=== PATIENT | female | born 1975 | race Two or more races ===

== ENCOUNTER 2024-04-15 09:58 | Inpatient (IN) | payer MEDICAID, OTHER ==
[~2024-04-15] VITALS: Ht 154.9 cm; Wt 73.6 kg
--- NOTE | 2024-04-15 10:45 | ECG ---
[facility] Test Date: 2024-04-15 Test Time: 10:37:21 Pat Name: MEJIA Department: ER Room: [facility] Gender: F Road Advisor: SHELLIE : 1975 Requested By: ENOCH AU Order Number: [id number] Reading MD: Tomas Rhodes Measurements Intervals [place] Rate: 79 P: 47 OK: 132 QRS: 49 QRSD: 95 T: 16 QT: 380 QTc: 436 Interpretive Statements Sinus rhythm Electronically Signed On 04-19-2024 21:49:45 PST by Tomas Rhodes Please click the below link to view image of tracing.
--- NOTE | 2024-04-15 10:49 | ED.PDOC ---
SOB-HPI HPI Comments RESTREPO: HPI: Poor Historian. 49-year-old female presents to emergency department for symptoms of nonproductive cough since Thursday with the associated nausea and occasional headache. Patient states that her entire family is sick with similar viral symptoms. Denies any fever. Patient is sometimes has occasional dizziness with the headaches in the last few days. Past Medical History: Denies Past Surgical History: REVIEW OF SYSTEMS: CONSTITUTIONAL: Denies acute: fever, diaphoresis, chills, HEAD: Denies acute: headache, photophobia Eyes: Denies acute: Double vision, vision loss, eye pain, eye discharge. EARS: Denies acute: tinnitus, hearing loss, ear discharge, ear pain, THROAT: Denies acute: sore throat, swelling, difficulty swallowing , pain with swallowing, change in voice. NECK: Denies acute: neck pain, neck swelling, stiff neck. HEART: Denies acute : chest pain, palpitations, LUNGS: Denies acute: SOB, wheezing, , hemoptysis ABDOMEN: Denies acute: abdominal pain, Vomiting, diarrhea, melena , hematemesis, hematochezia SKIN: Denies acute: rash, redness, lesions, itchiness. EXTREMITIES: Denies acute: calf pain, numbness, tingling, weakness, denies pain in extremity. Denies acute: Low back pain. Neuro: Denies acute: focal neurological deficit, motor or sensory focal neurological deficit, tremors, seizure like activity, confusion, change in mental status, loss of bowel or bladder function, cauda equina like symptoms. : Denies acute: dysuria, hematuria, flank pain, increase in urinary frequency. PSYCH: Denies acute: hallucination, suicidal ideation, homicidal ideation. FEMALE: Denies acute: abnormal vaginal bleeding, foul odor, unusual discharge. PHYSICAL EXAM: General: no acute distress, awake and alert. Head: normocephalic, atraumatic. Neck: supple, trachea is midline, no swelling. Throat: Normal phonation. Eyes:, no erythema, no purulent discharge, no proptosis, no icterus. Heart: regular rate, regular rhythm, no significant murmur appreciated. Lungs: no apparent respiratory distress, Able to speak in full sentences. No wheezing, no rhonchi, no crackles. No stridors Clear to auscultation bilaterally. Abdomen: non tender to palpation, non distended, soft, no guarding, no rebound, + bowel sounds. Neuro: Awake, Alert, oriented to name, self, situation, follows commands GCS=15. Speech is normal. Skin: no petechia, no purpura, no cyanosis, non-pale, not jaundice. Lower extremities: --no - Pitting edema no deformity, no focal swelling, no calf TTP. Makes eye contact. moves all four extremities. Face: no apparent facial droop. Ambulating in the ED independently. Ears: Normal appearing TM b/l, Stroke: finger to nose cerebellar testing is intact. No pronator drift. 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 No nuchal rigidity, Kernig's sign, Brudzinski's sign, no meningeal signs. 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 Was a procedure done?: No Differential Dx Differential Diagnosis: CHF, COPD, Dysrhythmia, Pneumonia, Respiratory Distress, Sinusitis, Allergic Rhinitis, Pharyngitis, URI X-Ray, Labs, Meds, VS Vital Signs Date Time Temp Pulse Resp B/P (MAP) Pulse Ox O2 Delivery O2 Flow Rate FiO2 04/15/24 12:45 73 17 95 Room Air 04/15/24 12:45 98.7 73 16 132/82 (99) 95 98.7 04/15/24 10:37 79 04/15/24 10:27 98.1 83 16 145/83 (103) 96 Lab Test 04/15/24 10:59 04/15/24 10:33 Range/Units White Blood Count 3.2 L 4.4-10.8 10^3/uL Red Blood Count 4.82 4.0-5.20 10^6/uL Hemoglobin 13.8 12.2-16.2 g/dL Hematocrit 42.4 36.0-46.0 % Mean Corpuscular Volume 87.9 80.0-100.0 fL Mean Corpuscular Hemoglobin 28.6 28.0-32.0 pg Mean Corpuscular Hemoglobin Concent 32.6 32.0-36.0 g/dL Red Cell Distribution Width 14.1 11.8-14.3 % Platelet Count 147 140-450 10^3/uL Mean Platelet Volume 7.9 6.9-10.8 fL Neutrophils (%) (Auto) 29.7 L 37.0-80.0 % Lymphocytes (%) (Auto) 55.4 H 10.0-50.0 % Monocytes (%) (Auto) 14.5 H 0.0-12.0 % Eosinophils (%) (Auto) 0.3 0.0-7.0 % Basophils (%) (Auto) 0.1 0.0-2.0 % Neutrophils # (Auto) 1.0 L 1.6-8.6 10 ^3/uL Lymphocytes # (Auto) 1.8 0.4-5.4 10 ^3/uL Monocytes # (Auto) 0.5 0-1.3 10 ^3/uL Eosinophils # (Auto) 0 0-0.8 10 ^3/uL Basophils # (Auto) 0 0-0.2 10 ^3/uL Nucleated Red Blood Cells 0.2 % Sodium Level 140 136-145 mmol/L Potassium Level 3.8 3.5-5.1 mmol/L Chloride Level 104 98-107 mmol/L Carbon Dioxide Level 28 20-31 mmol/L Anion Gap 8 5-15 Blood Urea Nitrogen 6 L 9-23 mg/dL Creatinine 0.66 0.550-1.02 mg/dL Glomerular Filtration Rate Calc 109 >90 mL/min BUN/Creatinine Ratio 9.1 L 10.0-20.0 Serum Glucose 109 H 74-106 mg/dL Calcium Level 9.1 8.7-10.4 mg/dL Total Bilirubin 0.3 0.2-1.0 mg/dL Aspartate Amino Transferase (AST) 112 H 13-40 U/L Alanine Aminotransferase (ALT) 104 H 7-40 U/L Alkaline Phosphatase 133 H 46-116 U/L Troponin I High Sensitivity < 3 L </=34 ng/L Total Protein 6.9 5.7-8.2 g/dL Albumin 4.4 3.2-4.8 g/dL Influenza Type A Antigen Positive Negative Influenza Type B Antigen Negative Negative SARS-CoV-2 Antigen (Rapid) Negative NEGATIVE Current Medications Medications (Trade) Dose Ordered Sig/Sussy Route Start Time Stop Time Status Last Admin Sodium Chloride 1,000 ml @ 1,000 mls/hr Q1H ONCE IV 04/15/24 12:30 04/15/24 13:29 DC 04/15/24 12:40 [place] [address] Ph: [phone] DIAGNOSTIC IMAGING Diagnostic Imaging Report : [id number] Signed PATIENT: NITHYA RESTREPOSUSACCT: [id number] UNIT: [id number] : 1975 LOC: ER ROOM / BED: / AGE / SEX: 49 / F ADM STATUS: REG ER SERVICE 1031 ORDERING PHYSICIAN: ENOCH AU DO PROCEDURE(s): CXRP - CHEST PORTABLE REASON: COUGH/N/ ORDER NUMBER(s): [id number], ACCESSION NUMBER(s): [id number] CHEST RADIOGRAPH Indication: COUGH/N/ Technique: Single frontal view of the chest was obtained Comparison: None FINDINGS: Lines and Tubes: None Lungs: No focal consolidation. Pleura: No effusion. No pneumothorax. Cardiomediastinal contours: Unremarkable Bones: No acute osseous abnormality. IMPRESSION: No acute cardiopulmonary disease. ATED BY: ANGELITO WHITTINGTON MD DICTATED DATE/TIME: 04/15/241101 SIGNED BY: ANGELITO WHITTINGTON MD SIGNED DATE/TIME: 04/15/241101 CC: Time of 1ST Reevaluation: 10:55 Reevaluation 1ST: Unchanged Patient Education/Counseling: Diagnosis, Treatment Family Education/Counseling: No Family Present Comments Patient presented with the above HPI.---respiratory symptoms---workup was initiated. patient was found with the above mentioned diagnosis. the following medications were ordered: please refer to order lists of meds and tests obtained by myself Dr. Au. Patient ED course and VS have been stabilized. Patient has been reassessed in the ED and remained in a stable condition. Pertinent incidental findings were discussed with the patient and/or family. Patient/family voices understanding and is agreeable with plan. Patient has been observed in the ED adequate length of time to insure improvement/stability. Escalation of care considered: Consideration of escalation to observation or admission Patient was found with elevated LFTs. Patient was ADMITTED to the medicine team for further evaluation and treatment of their presentation. All the reports of any imaging studies that were ordered by myself were reviewed by myself. Departure 1 Departure Time of Disposition: 12:18 Impression: Primary Impression: Influenza A H1N1 infection Additional Impression: Elevated LFTs Disposition: ADMITTED INPATIENT Admit to: Tele Condition: Guarded Discharged With: Self Critical Care Note Critical Care Time?: No I personally scribed for ENOCH AU DO ([email or web address]) on 04/15/24 at 10:49. Electronically submitted by Celestino Rivera ([email or web address]). I personally scribed for ENOCH AU DO ([email or web address]) on 04/15/24 at 17:34. Electronically submitted by Celestino Rivera ([email or web address]). ENOCH AU DO Apr 15, 2024 10:49
--- NOTE | 2024-04-15 11:04 | DVH ---
CHEST RADIOGRAPH Indication: COUGH/N/ Technique: Single frontal view of the chest was obtained Comparison: None FINDINGS: Lines and Tubes: None Lungs: No focal consolidation. Pleura: No effusion. No pneumothorax. Cardiomediastinal contours: Unremarkable Bones: No acute osseous abnormality. IMPRESSION: No acute cardiopulmonary disease.
[2024-04-15 11:10] LABS: COVID19 ANTIGEN SOFIA FIA NEGATIVE (NEGATIVE)
[2024-04-15 11:14] LABS: Rapid Influenza A Positive (Negative); Rapid Influenza B Negative (Negative)
[2024-04-15 11:15] LABS: Basophils # (auto) 0 10 ^3/uL (0-0.2); Basophils % (auto) 0.1 % (0.0-2.0); Eosinophils # (auto) 0 10 ^3/uL (0-0.8); Eosinophils % (auto) 0.3 % (0.0-7.0); Hematocrit 42.4 % (36.0-46.0); Hemoglobin 13.8 g/dL (12.2-16.2); Lymphocytes # (auto) 1.8 10 ^3/uL (0.4-5.4); Lymphocytes % (auto) 55.4 % (10.0-50.0); Mean Corpuscular Hemoglobin 28.6 pg (28.0-32.0); Mean Corpuscular Hgb Conc. 32.6 g/dL (32.0-36.0); Mean Corpuscular Volume 87.9 fL (80.0-100.0); Monocytes # (auto) 0.5 10 ^3/uL (0-1.3); Monocytes % (auto) 14.5 % (0.0-12.0); Neutrophils % (auto) 29.7 % (37.0-80.0); Nucleated Red Blood Cells % 0.2 %; Platelet Count (auto) 147 10^3/uL (140-450); Red Blood Cells 4.82 10^6/uL (4.0-5.20); Red Cell Distribution Width 14.1 % (11.8-14.3); White Blood Cell 3.2 10^3/uL (4.4-10.8)
[2024-04-15 11:38] LABS: Albumin 4.4 g/dL (3.2-4.8); Anion Gap 8 (5-15); BUN/Creatinine Ratio 9.1 (10.0-20.0); Calcium 9.1 mg/dL (8.7-10.4); Carbon Dioxide 28 mmol/L (20-31); Chloride 104 mmol/L (98-107); Potassium 3.8 mmol/L (3.5-5.1); Sodium 140 mmol/L (136-145)
[2024-04-15 11:39] LABS: Total Protein 6.9 g/dL (5.7-8.2)
[2024-04-15 11:56] LABS: Alanine Aminotransferase 104 U/L (7-40); Alkaline Phosphatase 133 U/L (46-116); Aspartate Aminotransferase 112 U/L (13-40); Bilirubin, Total 0.3 mg/dL (0.2-1.0); Blood Urea Nitrogen 6 mg/dL (9-23); Glucose 109 mg/dL (74-106)
[2024-04-15] MEDS: SODIUM CHLORIDE 0.9% 1,000 ML IV ONE (12:40)
[2024-04-15] MEDS ORDERED: ALBUTEROL SULF 2.5 MG/0.5ML(0.5%) NEB SOLN NEB PRN (14:00)
[2024-04-15] MEDS ORDERED: IPRATROPIUM BROM 0.5 MG/2.5ML INH SOL NEB PRN (14:00)
--- NOTE | 2024-04-15 14:03 | DVHHP2 ---
History of Present Illness Reason for Visit: Cough, dizziness, and headache History of Present Illness NITHYA Marshall is a 49-year-old female with past medical history of C- section who presents to the ED for flu-like symptoms of dizziness, headache, and cough x5 days. Patient reports that her family is sick at home. Patient denies any chest pain, shortness of breath, fever, chills, lightheadedness, weakness, chest pain, nausea, vomiting, diarrhea, and abdominal pain. Past Surgical History: Family History: Other (Both ) Smoke: No ALCOHOL: none Drugs: None Lives: with Family Domestic Violence: Neg Review of Systems Constitutional: Yes: Other (Headache and dizziness); No: Fever, Chills, Sweats, Weakness, Malaise Eyes: No: Pain, Vision change, Conjunctivae inflammation, Eyelid inflammation, Other, Redness ENT: No: Ear pain, Ear discharge, Nose pain, Nose discharge, Nose congestion, Mouth pain, Mouth swelling, Throat pain, Throat swelling, Other Respiratory: Cough; No: Dry, Shortness of breath, SOB with excertion, Wheezing, Hemoptysis, Pleuritic Pain, Sputum, Wheezing, Other Cardiovascular: No: Chest Pain, Palpitations, Orthopnea, Paroxysmal Noc. Dyspnea, Edema, Lt Headedness, Other Gastrointestinal: No: Nausea, Vomiting, Abdominal Pain, Diarrhea, Constipation, Melena, Hematochezia, Other Genitourinary: No Dysuria, No Frequency, No Incontinence, No Hematuria, No Retention, No Other Musculoskeletal: No: other, neck pain, shoulder pain, arm pain, back pain, hand pain, leg pain, foot pain Skin: No: Rash, Lesions, Jaundice, Bruising, Other Neurological: No: Weakness, Numbness, Incoordination, Change in speech, Confusion, Seizures, Other Allergies: Coded Allergies: NO KNOWN ALLERGIES (Unverified , 04/15/24) Medications Current Medications Medications Dose Ordered Sig/Sussy Route Start Time Stop Time Status Last Admin Dose Admin Oseltamivir Phosphate 75 mg Q12HR PO 04/15/24 22:00 04/20/24 21:59 UNV Ondansetron HCl 4 mg Q4HP PRN IV 04/15/24 14:00 UNV Acetaminophen 650 mg Q6HP PRN PO 04/15/24 14:00 UNV Exam Vital Signs Vital Signs Date Time Temp Pulse Resp B/P (MAP) Pulse Ox O2 Delivery O2 Flow Rate FiO2 04/15/24 12:45 73 17 95 Room Air 04/15/24 12:45 98.7 132/82 (99) 98.7 General Appearance: Alert, Oriented X3, Cooperative, No acute distress HEENT: Atraumatic, PERRLA, EOMI, Mucous membr. moist/pink Respiratory: Normal air movement Cardiovascular: Regular rate, Normal S1, Normal S2, No murmurs Abdominal: Normal bowel sounds, No tenderness, No hepatospenomegaly, No masses Extremities: No clubbing, No cyanosis, No edema, Normal pulses, No tenderness/swelling Skin: No rashes, No breakdown, No significant lesion Neuro: Normal gait, Normal speech, Strength at 5/5 X4 ext, Normal tone, Se nsation intact Psych/Mental Status: Mental status NL, Mood NL Labs/Xrays Labs Test 04/15/24 10:59 04/15/24 10:33 Range/Units White Blood Count 3.2 L 4.4-10.8 10^3/uL Red Blood Count 4.82 4.0-5.20 10^6/uL Hemoglobin 13.8 12.2-16.2 g/dL Hematocrit 42.4 36.0-46.0 % Mean Corpuscular Volume 87.9 80.0-100.0 fL Mean Corpuscular Hemoglobin 28.6 28.0-32.0 pg Mean Corpuscular Hemoglobin Concent 32.6 32.0-36.0 g/dL Red Cell Distribution Width 14.1 11.8-14.3 % Platelet Count 147 140-450 10^3/uL Mean Platelet Volume 7.9 6.9-10.8 fL Neutrophils (%) (Auto) 29.7 L 37.0-80.0 % Lymphocytes (%) (Auto) 55.4 H 10.0-50.0 % Monocytes (%) (Auto) 14.5 H 0.0-12.0 % Eosinophils (%) (Auto) 0.3 0.0-7.0 % Basophils (%) (Auto) 0.1 0.0-2.0 % Neutrophils # (Auto) 1.0 L 1.6-8.6 10 ^3/uL Lymphocytes # (Auto) 1.8 0.4-5.4 10 ^3/uL Monocytes # (Auto) 0.5 0-1.3 10 ^3/uL Eosinophils # (Auto) 0 0-0.8 10 ^3/uL Basophils # (Auto) 0 0-0.2 10 ^3/uL Nucleated Red Blood Cells 0.2 % Sodium Level 140 136-145 mmol/L Potassium Level 3.8 3.5-5.1 mmol/L Chloride Level 104 98-107 mmol/L Carbon Dioxide Level 28 20-31 mmol/L Anion Gap 8 5-15 Blood Urea Nitrogen 6 L 9-23 mg/dL Creatinine 0.66 0.550-1.02 mg/dL Glomerular Filtration Rate Calc 109 >90 mL/min BUN/Creatinine Ratio 9.1 L 10.0-20.0 Serum Glucose 109 H 74-106 mg/dL Calcium Level 9.1 8.7-10.4 mg/dL Total Bilirubin 0.3 0.2-1.0 mg/dL Aspartate Amino Transferase (AST) 112 H 13-40 U/L Alanine Aminotransferase (ALT) 104 H 7-40 U/L Alkaline Phosphatase 133 H 46-116 U/L Troponin I High Sensitivity < 3 L </=34 ng/L Total Protein 6.9 5.7-8.2 g/dL Albumin 4.4 3.2-4.8 g/dL Influenza Type A Antigen Positive Negative Influenza Type B Antigen Negative Negative SARS-CoV-2 Antigen (Rapid) Negative NEGATIVE EXAM: XY CHEST PORTABLE Indication: fall Technique: Single frontal view of the chest was obtained Comparison: XY CHEST PORTABLE on DOS: 09/18/23, XY CHEST XRAY 1 VIEW on DOS: 09/15/23, XY CHEST PORTABLE on DOS: 05/24/23 FINDINGS: Lines and Tubes: None Lungs: No focal consolidation. Pulmonary vascular congestion. Pleura: No effusion. No pneumothorax. Cardiomediastinal contours: Unremarkable Bones: No acute osseous abnormality. IMPRESSION: Pulmonary vascular congestion. No acute cardiopulmonary disease. Assessment/Plan Assessment/Plan Assessment/Plan: Flu A positive Labs Chest x-ray noted 1 L NS given ED Troponin negative COVID negative Flu test EKG Tamiflu ordered Antiemetics Pain management Antipyretics P.r.n. 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
[2024-04-15 14:17] VITALS: BP 132/82; PULSE 72; RESP 16; O2SAT 96
[2024-04-15] MEDS: OSELTAMIVIR 75 MG CAP PO ONE (14:37)
[2024-04-15 19:35] VITALS: RESP 17; O2SAT 97
[2024-04-15 19:46] VITALS: O2SAT 96
[2024-04-15] MEDS: OSELTAMIVIR 75 MG CAP PO SCH (23:55)
[2024-04-16] VITALS (8 sets, daily range): BP systolic 139–158; BP diastolic 81–92; PULSE 75–84; RESP 19–20; TEMP 97.8–97.9; O2SAT 92–95
[2024-04-16 06:26] LABS: Basophils # (auto) 0 10 ^3/uL (0-0.2); Basophils % (auto) 0.3 % (0.0-2.0); Eosinophils # (auto) 0 10 ^3/uL (0-0.8); Eosinophils % (auto) 0.3 % (0.0-7.0); Hemoglobin 13.4 g/dL (12.2-16.2); Lymphocytes # (auto) 1.6 10 ^3/uL (0.4-5.4); Lymphocytes % (auto) 40.8 % (10.0-50.0); Mean Corpuscular Hgb Conc. 32.8 g/dL (32.0-36.0); Mean Corpuscular Volume 88.5 fL (80.0-100.0); Monocytes # (auto) 0.5 10 ^3/uL (0-1.3); Monocytes % (auto) 13.4 % (0.0-12.0); Neutrophils # (auto) 1.8 10 ^3/uL (1.6-8.6); Neutrophils % (auto) 45.2 % (37.0-80.0); Nucleated Red Blood Cells % 0.2 %; Platelet Count (auto) 169 10^3/uL (140-450); Red Blood Cells 4.63 10^6/uL (4.0-5.20); Red Cell Distribution Width 13.8 % (11.8-14.3); White Blood Cell 3.9 10^3/uL (4.4-10.8)
[2024-04-16 06:33] LABS: Albumin 4.5 g/dL (3.2-4.8); Anion Gap 9 (5-15); BUN/Creatinine Ratio 13.3 (10.0-20.0); Calcium 9.4 mg/dL (8.7-10.4); Carbon Dioxide 26 mmol/L (20-31); Chloride 105 mmol/L (98-107); Sodium 140 mmol/L (136-145); Total Protein 7.2 g/dL (5.7-8.2)
[2024-04-16 06:51] LABS: Alanine Aminotransferase 113 U/L (7-40); Alkaline Phosphatase 122 U/L (46-116); Aspartate Aminotransferase 123 U/L (13-40); Bilirubin, Total 0.3 mg/dL (0.2-1.0); Blood Urea Nitrogen 8 mg/dL (9-23); Glucose 136 mg/dL (74-106)
[2024-04-16] MEDS: ONDANSETRON HCL 4 MG/2 ML VIAL IV PRN (10:59)
--- NOTE | 2024-04-16 11:54 | DVHINCON2 ---
Date of service: Apr 16, 2024 Referring Physician Marcella Scott Reason for Consultation Transaminitis History of Present Illness The patient is a 49-year-old female with abdominal pain, nausea, vomiting, URI symptoms and found to have influenza A. GI consultation was obtained for transaminitis. Patient has no prior history of liver abnormalities, denies abdominal pain, denies history of hepatitis, denies history of alcohol abuse. Patient also complains of history of dizziness and lightheadedness as well as headache. Past Medical History No significant past medical history Past Surgical History section Family History No gastrointestinal diseases or malignancy Social History No tobacco, alcohol, or recreational drug use Allergies: Coded Allergies: NO KNOWN ALLERGIES (Unverified , 04/15/24) Current Medications Current Medications Medications (Trade) Dose Ordered Sig/Sussy Route PRN Reason Start Time Stop Time Status Last Admin Oseltamivir Phosphate (Tamiflu 75MG Capsule) 75 mg Q12HR PO 04/15/24 22:00 04/20/24 21:59 04/16/24 10:00 Ondansetron HCl (Zofran) 4 mg Q4HP PRN IV NAUSEA / VOMITING 04/15/24 14:00 04/16/24 10:59 Acetaminophen (Tylenol Tablet) 650 mg Q6HP PRN PO PAIN SCALE 1-3 OR TEMP>100.4 04/15/24 14:00 Albuterol (Ventolin Medneb) 2.5 mg Q4HPRN PRN NEB SHORTNESS OF BREATH 04/15/24 14:00 Ipratropium [place] (Atrovent Medneb) 0.5 mg Q4HPRN PRN NEB SHORTNESS OF BREATH 04/15/24 14:00 Review of Systems 12 point review of systems negative other than HPI Vital Signs Vital Signs Date Time Temp Pulse Resp B/P (MAP) Pulse Ox O2 Delivery O2 Flow Rate FiO2 04/16/24 09:40 98.4 74 18 145/83 (103) 91 98.4 04/15/24 19:46 Room Air* 0 21 Physical Exam General: Alert and oriented x4 no distress HEENT: Normocephalic atraumatic extraocular movements were intact Heart Regular rate and rhythm Abdomen: Soft nontender nondistended Extremities: No clubbing cyanosis or edema Labs/Diagnostic Data Labs Test 04/16/24 05:02 04/15/24 10:59 04/15/24 10:33 Range/Units White Blood Count 3.9 L 4.4-10.8 10^3/uL Red Blood Count 4.63 4.0-5.20 10^6/uL Hemoglobin 13.4 12.2-16.2 g/dL Hematocrit 41.0 36.0-46.0 % Mean Corpuscular Volume 88.5 80.0-100.0 fL Mean Corpuscular Hemoglobin 29.0 28.0-32.0 pg Mean Corpuscular Hemoglobin Concent 32.8 32.0-36.0 g/dL Red Cell Distribution Width 13.8 11.8-14.3 % Platelet Count 169 140-450 10^3/uL Mean Platelet Volume 7.9 6.9-10.8 fL Neutrophils (%) (Auto) 45.2 37.0-80.0 % Lymphocytes (%) (Auto) 40.8 10.0-50.0 % Monocytes (%) (Auto) 13.4 H 0.0-12.0 % Eosinophils (%) (Auto) 0.3 0.0-7.0 % Basophils (%) (Auto) 0.3 0.0-2.0 % Neutrophils # (Auto) 1.8 1.6-8.6 10 ^3/uL Lymphocytes # (Auto) 1.6 0.4-5.4 10 ^3/uL Monocytes # (Auto) 0.5 0-1.3 10 ^3/uL Eosinophils # (Auto) 0 0-0.8 10 ^3/uL Basophils # (Auto) 0 0-0.2 10 ^3/uL Nucleated Red Blood Cells 0.2 % Sodium Level 140 136-145 mmol/L Potassium Level 4.0 3.5-5.1 mmol/L Chloride Level 105 98-107 mmol/L Carbon Dioxide Level 26 20-31 mmol/L Anion Gap 9 5-15 Blood Urea Nitrogen 8 L 9-23 mg/dL Creatinine 0.60 0.550-1.02 mg/dL Glomerular Filtration Rate Calc 111 >90 mL/min BUN/Creatinine Ratio 13.3 10.0-20.0 Serum Glucose 136 H 74-106 mg/dL Calcium Level 9.4 8.7-10.4 mg/dL Total Bilirubin 0.3 0.2-1.0 mg/dL Aspartate Amino Transferase (AST) 123 H 13-40 U/L Alanine Aminotransferase (ALT) 113 H 7-40 U/L Alkaline Phosphatase 122 H 46-116 U/L Total Protein 7.2 5.7-8.2 g/dL Albumin 4.5 3.2-4.8 g/dL Troponin I High Sensitivity < 3 L </=34 ng/L Influenza Type A Antigen Positive Negative Influenza Type B Antigen Negative Negative SARS-CoV-2 Antigen (Rapid) Negative NEGATIVE Assessment 1. Influenza 2. Transaminitis Problems(with codes): (1) Elevated LFTs (2) Influenza A H1N1 infection Plan/Recommendation 1. Ultrasound abdomen 2. Follow labs 3. IV fluids 4. Consult discharge patient home and outpatient follow-up for transaminitis after ultrasound if no significant acute findings 5. I will follow Plan discussed with: Patient, Daughter KEYARLINSCOTT Solitario MD Apr 16, 2024 11:54
[2024-04-16] MEDS: ACETAMINOPHEN 325 MG TAB PO PRN (12:18)
--- NOTE | 2024-04-16 12:50 | DVH ---
EXAM: US Abdomen Limited, Right Upper Quadrant CLINICAL INDICATION: Transaminitis TECHNIQUE: Real-time ultrasound of the right upper quadrant with image documentation. COMPARISON: None FINDINGS: LIVER: Liver measures 15.9 cm. Fatty infiltration of the liver. No intrahepatic bile duct dilatio n. GALLBLADDER: Unremarkable. No gallstones. COMMON BILE DUCT: Unremarkable as visualized. No stones. No dilation. Common bile duct measures 0.41 cm in diameter. PANCREAS: Unremarkable as visualized. RIGHT KIDNEY: Right kidney measures up to 10.7 cm. No stones. No hydronephrosis. OTHER FINDINGS: . . IMPRESSION: Fatty infiltration of the liver.
[2024-04-16] MEDS: hydrALAZINE HCL 20 MG/ML VL IV PRN (13:27)
--- NOTE | 2024-04-16 16:47 | DVHPN2 ---
Subjective VOMITED once today/is getting better/ Changes from previous H/P or p: No Changes Eyes: No Pain, No Vision change, No Conjunctivae inflammation, No Eyelid inflammation, No Other, No Redness ENT: No Ear pain, No Ear discharge, No Nose pain, No Nose discharge, No Nose congestion, No Mouth pain, No Mouth swelling, No Throat pain, No Throat swelling, No Other Cardiovascular: No Chest Pain, No Palpitations, No Orthopnea, No Paroxysmal Noc. Dyspnea, No Edema, No Lt Headedness, No Other Respiratory: Cough; No Dry, No Shortness of breath, No SOB with excertion, No Wheezing, No Hemoptysis, No Pleuritic Pain, No Sputum, No Other Gastrointestinal: No Nausea, No Vomiting, No Abdominal Pain, No Diarrhea, No Constipation, No Melena, No Hematochezia, No Other Genitourinary: No Dysuria, No Frequency, No Incontinence, No Hematuria, No Retention, No Other Musculoskeletal: No other, No neck pain, No shoulder pain, No arm pain, No back pain, No hand pain, No leg pain, No foot pain Skin: No Rash, No Lesions, No Jaundice, No Bruising, No Other Objective Vitals Vital Signs Date Time Temp Pulse Resp B/P (MAP) Pulse Ox O2 Delivery O2 Flow Rate FiO2 04/16/24 15:27 84 139/83 (101) 04/16/24 13:12 97.8 20 94 97.8 04/16/24 13:12 Room Air* 0 21 General Appearance: Alert, Oriented X3, Cooperative, No acute distress Lungs: Clear to auscultation Cardiovascular: Regular rate, Normal S1, Normal S2 Abdomen: Normal bowel sounds, Soft, No tenderness, No hepatospenomegaly Musculoskeletal: Normal sensory function, Normal motor function Neuro: Normal gait Medications Current Medications Medications Dose Ordered Sig/Sussy Route Start Time Stop Time Status Last Admin Dose Admin Oseltamivir Phosphate 75 mg Q12HR PO 04/15/24 22:00 04/20/24 21:59 04/16/24 10:00 75 MG Ondansetron HCl 4 mg Q4HP PRN IV 04/15/24 14:00 04/16/24 15:21 4 MG Acetaminophen 650 mg Q6HP PRN PO 04/15/24 14:00 04/16/24 12:18 650 MG Albuterol 2.5 mg Q4HPRN PRN NEB 04/15/24 14:00 Ipratropium [place] 0.5 mg Q4HPRN PRN NEB 04/15/24 14:00 Hydralazine HCl 10 mg Q6HP PRN IV 04/16/24 12:30 04/16/24 13:27 10 MG Laboratory Results Laboratory Tests 04/16/24 05:02 Chemistry Test 04/16/24 05:02 Albumin 4.5 g/dL (3.2-4.8) Calcium Level 9.4 mg/dL (8.7-10.4) Total Protein 7.2 g/dL (5.7-8.2) LFT Test 04/16/24 05:02 Alanine Aminotransferase (ALT) 113 U/L (7-40) H Alkaline Phosphatase 122 U/L (46-116) H Aspartate Amino Transferase (AST) 123 U/L (13-40) H Total Bilirubin 0.3 mg/dL (0.2-1.0) Labs and/or images reviewed: Labs reviewed by me, Image(s) reviewed by me Assessment/Plan Assessment/Plan influenza syndrome elevated lft- secondary to above elevated cpk secondary to above- advised adequate rest and fluids Plan discussed with: Patient, Spouse, Daughter Date of Service: Apr 16, 2024 Billing Provider: NADEGE AVILES MD Common Visit Codes: [id number] INP/OBS CARE(LOW) NADEGE AVILES MD Apr 16, 2024 16:47
[2024-04-16] MEDS ORDERED: guaiFENesin-DM 100/10mg/5ml SYR PO PRN (17:00)
[2024-04-16] MEDS: guaiFENesin-CODEINE Liq 5 ML UD PO ONE (21:24)
[2024-04-17] VITALS (8 sets, daily range): BP systolic 150–156; BP diastolic 82–95; PULSE 20–90; RESP 18–20; TEMP 97.1–98.9; O2SAT 90–94
[2024-04-17 07:18] LABS: Basophils # (auto) 0 10 ^3/uL (0-0.2); Basophils % (auto) 0.2 % (0.0-2.0); Eosinophils # (auto) 0 10 ^3/uL (0-0.8); Eosinophils % (auto) 0.2 % (0.0-7.0); Hematocrit 39.7 % (36.0-46.0); Lymphocytes # (auto) 1.5 10 ^3/uL (0.4-5.4); Lymphocytes % (auto) 39.7 % (10.0-50.0); Mean Corpuscular Hemoglobin 28.6 pg (28.0-32.0); Mean Corpuscular Hgb Conc. 32.8 g/dL (32.0-36.0); Mean Corpuscular Volume 87.1 fL (80.0-100.0); Monocytes # (auto) 0.4 10 ^3/uL (0-1.3); Monocytes % (auto) 11.1 % (0.0-12.0); Neutrophils # (auto) 1.9 10 ^3/uL (1.6-8.6); Neutrophils % (auto) 48.8 % (37.0-80.0); Nucleated Red Blood Cells % 0.3 %; Platelet Count (auto) 248 10^3/uL (140-450); Red Blood Cells 4.55 10^6/uL (4.0-5.20); Red Cell Distribution Width 14.2 % (11.8-14.3); White Blood Cell 3.8 10^3/uL (4.4-10.8)
[2024-04-17 07:43] LABS: Alkaline Phosphatase 115 U/L (46-116); Anion Gap 10 (5-15); BUN/Creatinine Ratio 14.8 (10.0-20.0); Calcium 9.3 mg/dL (8.7-10.4); Carbon Dioxide 25 mmol/L (20-31); Chloride 104 mmol/L (98-107); Sodium 139 mmol/L (136-145)
[2024-04-17 07:44] LABS: Albumin 4.3 g/dL (3.2-4.8); Bilirubin, Total 0.4 mg/dL (0.2-1.0); Creatine Kinase IFCC 67 U/L (34-145)
[2024-04-17 07:58] LABS: Alanine Aminotransferase 132 U/L (7-40); Aspartate Aminotransferase 117 U/L (13-40); Blood Urea Nitrogen 8 mg/dL (9-23); Glucose 129 mg/dL (74-106); Potassium 3.4 mmol/L (3.5-5.1)
--- NOTE | 2024-04-17 16:27 | PRN ---
Misceleneous Note Note Note April 17, 2024 Subjective: Patient was admitted for influenza. She complains of headache, dizziness, denies any abdominal pain, nausea or vomiting. Current Medications Medications (Trade) Dose Ordered Sig/Sussy Route Start Time Stop Time Status Last Admin Dose Admin Oseltamivir Phosphate (Tamiflu 75MG Capsule) 75 mg Q12HR PO 04/15/24 22:00 04/20/24 21:59 04/17/24 10:17 75 MG Ondansetron HCl (Zofran) 4 mg Q4HP PRN IV 04/15/24 14:00 04/17/24 07:17 4 MG Acetaminophen (Tylenol Tablet) 650 mg Q6HP PRN PO 04/15/24 14:00 04/16/24 21:25 650 MG Albuterol (Ventolin Medneb) 2.5 mg Q4HPRN PRN NEB 04/15/24 14:00 Ipratropium [place] (Atrovent Medneb) 0.5 mg Q4HPRN PRN NEB 04/15/24 14:00 Hydralazine HCl (Apresoline Injection) 10 mg Q6HP PRN IV 04/16/24 12:30 04/17/24 07:03 10 MG Guaifenesin/ Dextromethorphan (Robitussin-Dm Liquid) 10 ml Q6HP PRN PO 04/16/24 17:00 Vital Signs Date Time Temp Pulse Resp B/P (MAP) Pulse Ox O2 Delivery O2 Flow Rate FiO2 04/17/24 13:00 97.1 73 20 150/82 (104) 94 97.1 04/17/24 08:16 Room Air* 0 21 General Alert and oriented x4 Regular rate and rhythm Clear to auscultation anteriorly Soft nontender nondistended abdomen No clubbing cyanosis or edema Ultrasound abdomen: Fatty liver Impression: 1. Influenza 2. Transaminitis Transaminitis likely due to fatty liver, no evidence of any acute pathology of the liver or gallbladder Recommendations: 1. Continue with current medications 2. Signing off 3. Outpatient follow-up with GI/liver 4. Education given for weight loss diet and exercise. SCOTT GRIER MD Apr 17, 2024 16:27
[2024-04-17] MEDS ORDERED: POTASSIUM CHLORIDE 8 MEQ TAB PO ONE (17:45)
[2024-04-17] MEDS: POTASSIUM CHLORIDE 8 MEQ TAB PO ONE (17:59)
[2024-04-17] MEDS: INFLUENZA TRIVALENT 2024-2025 0.5 ML INJ IM ONE (18:57)
[2024-04-17] MEDS: PNEUMOCOCCAL VACC POLYS 25 MCG/0.5 ML VIAL IM ONE (18:57)
[2024-04-18 10:56] LABS: Hepatitis B Surface Antigen Negative (Negative)
[2024-04-18 10:56] LABS: Hepatitis B Surface Antibody Negative (Negative); Hepatitis B Surface Antigen Negative (Negative)
[2024-04-18 11:42] LABS: Hepatitis B Core IgM Negative (Negative); Hepatitis C Antibody Negative (Negative)
[2024-04-18 11:42] LABS: Hepatitis C Antibody Negative (Negative)
== END 2024-04-17 18:56 | disposition home or self-care (01) | DRG 113 ==
LOC: ER 09:58 → OVERFLOW 13:46 → WEST WING 04-16 12:46
PROVIDERS: ADMIT Internal Medicine; ATTEND Internal Medicine
DX: J10.1 Influenza due to other identified influenza virus with other respiratory manifestations (principal); E66.9 Obesity, unspecified; Z20.822 Contact with and (suspected) exposure to COVID-19; R74.01 Elevation of levels of liver transaminase levels; Z98.891 History of uterine scar from previous surgery; Z79.899 Other long term (current) drug therapy; Z68.34 Body mass index [BMI] 34.0-34.9, adult
CPT/HCPCS: 36415; 71045; 76705; 80053; 82550; 84484; 85025; 86038; 86705; 86706; 86803; 87340; 87426; 87804; 93005; G0378; J2405